=== PATIENT | female | born 1950 | race Two or more races ===

== ENCOUNTER 2016-04-09 12:57 | Emergency (ER) | payer OTHER ==
[~2016-04-09] VITALS: Ht 165.1 cm; Wt 90.7 kg
[2016-04-09] MEDS ORDERED: LEVOFLOXACIN 500 MG TAB PO ONE (14:45)
[2016-04-09 16:32] VITALS: BP 148/76
== END 2016-04-09 16:35 | disposition home or self-care (01) ==
LOC: ER 12:59
DX: S01.402A Unspecified open wound of left cheek and temporomandibular area, initial encounter (principal); L02.31 Cutaneous abscess of buttock; Z48.01 Encounter for change or removal of surgical wound dressing; I10 Essential (primary) hypertension; Z88.0 Allergy status to penicillin; Z91.041 Radiographic dye allergy status; X58.XXXA Exposure to other specified factors, initial encounter; Y93.89 Activity, other specified; Y99.8 Other external cause status; Y92.89 Other specified places as the place of occurrence of the external cause

== ENCOUNTER 2017-05-24 18:22 | Inpatient (IN) | payer OTHER ==
[~2017-05-24] VITALS: Ht 165.1 cm; Wt 85.7 kg
[2017-05-24] MEDS ORDERED: IPRATROPIUM BROM 0.5 MG/2.5ML INH SOL NEB ONE ×2 (19:00→21:15)
[2017-05-24] MEDS ORDERED: ALBUTEROL SULF 2.5 MG/0.5ML(0.5%) NEB SOLN NEB ONE ×2 (19:00→21:15)
[2017-05-24 19:32] LABS: Hemoglobin 12.9 g/dL (12.2-16.2); Lymphocytes # (auto) 1.5 uL; Lymphocytes % (auto) 33.1 % (10.0-50.0); White Blood Cell 4.6 10^3/uL (4.4-10.8)
[2017-05-24 19:42] LABS: Basophils # (auto) 0 uL; Basophils % (auto) 1.1 % (0.0-2.0); Eosinophils # (auto) 0 uL; Eosinophils % (auto) 1.1 % (0.0-7.0); Hematocrit 38.5 % (36.0-46.0); Mean Corpuscular Hemoglobin 32.4 pg (28.0-32.0); Mean Corpuscular Hgb Conc. 33.6 g/dL (32.0-36.0); Mean Corpuscular Volume 96.6 fL (80.0-100.0); Monocytes # (auto) 0.3 uL; Neutrophils # (auto) 2.6 uL; Neutrophils % (auto) 57.7 % (37.0-80.0); Nucleated Red Blood Cells % 0.1 %; Platelet Count (auto) 206 10^3/uL (140-450); Red Blood Cells 3.99 10^6/uL (4.0-5.20); Red Cell Distribution Width 15.4 % (11.8-14.3)
[2017-05-24 19:50] LABS: Alanine Aminotransferase 36 U/L (13-56); Albumin 3.5 g/dL (3.4-5.0); Anion Gap 7 (5-15); Aspartate Aminotransferase 27 U/L (15-37); BUN/Creatinine Ratio 16.5; Blood Urea Nitrogen 17 mg/dL (7-18); Calcium 8.3 mg/dL (8.5-10.1); Carbon Dioxide 28 mmol/L (21-32); Chloride 107 mmol/L (98-107); GFR African American 69 mL/min; GFR Non-African American 57 mL/min; Glucose 128 mg/dL (74-106); Potassium 3.5 mmol/L (3.5-5.1); Sodium 142 mmol/L (136-145)
[2017-05-24 19:55] LABS: Alkaline Phosphatase 73 U/L (45-117); Bilirubin, Total 0.3 mg/dL (0.2-1.0); Total Protein 7.4 g/dL (6.4-8.2)
[2017-05-24] MEDS ORDERED: methylPREDNISolone SOD SUCC 125 MG/2 ML VL IV ONE (21:15)
[2017-05-25] MEDS ORDERED: OSELTAMIVIR 75 MG CAP PO ONE (00:15)
[2017-05-25] MEDS ORDERED: PROMETHAZINE W/CODEINE 5 ML ORAL SYRUP PO ONE (00:15)
[2017-05-25] MEDS ORDERED: DOXYCYCLINE HYC 100MG/250ML 250 ML IV SCH (03:30)
[2017-05-25] MEDS ORDERED: ACETAMINOPHEN 500 MG TAB PO PRN (03:30)
[2017-05-25] MEDS ORDERED: TEMAZEPAM 15 MG CAP PO PRN (03:30)
[2017-05-25] MEDS ORDERED: ONDANSETRON HCL 4 MG/2 ML VIAL IV PRN (03:30)
[2017-05-25] MEDS ORDERED: FUROSEMIDE 20 MG/2 ML VIAL IV ONE (04:45)
[2017-05-25 04:51] LABS: Basophils # (auto) 0 uL; Basophils % (auto) 0.3 % (0.0-2.0); Eosinophils # (auto) 0 uL; Hematocrit 39.4 % (36.0-46.0); Hemoglobin 13.1 g/dL (12.2-16.2); Lymphocytes # (auto) 0.8 uL; Lymphocytes % (auto) 13.6 % (10.0-50.0); Mean Corpuscular Hemoglobin 32.1 pg (28.0-32.0); Mean Corpuscular Hgb Conc. 33.3 g/dL (32.0-36.0); Mean Corpuscular Volume 96.4 fL (80.0-100.0); Monocytes # (auto) 0.1 uL; Monocytes % (auto) 1.3 % (0.0-12.0); Neutrophils # (auto) 4.9 uL; Neutrophils % (auto) 84.8 % (37.0-80.0); Platelet Count (auto) 211 10^3/uL (140-450); Red Blood Cells 4.08 10^6/uL (4.0-5.20); Red Cell Distribution Width 15.4 % (11.8-14.3); White Blood Cell 5.8 10^3/uL (4.4-10.8)
[2017-05-25 05:19] VITALS: BP 148/91
[2017-05-25 05:47] LABS: BUN/Creatinine Ratio 18.7; Calcium 8.9 mg/dL (8.5-10.1)
[2017-05-25] MEDS ORDERED: IPRATROPIUM BROM 0.5 MG/2.5ML INH SOL NEB SCH (06:00)
[2017-05-25] MEDS ORDERED: ALBUTEROL SULF 2.5 MG/0.5ML(0.5%) NEB SOLN NEB SCH (06:00)
[2017-05-25] MEDS: methylPREDNISolone SOD SUCC 40 MG/ML VL IV SCH ×2 (06:41→13:50)
[2017-05-25] MEDS: HYDROcodone-ACET 5/325MG TAB PO PRN ×2 (06:46→12:58)
[2017-05-25 08:00] VITALS: BP 115/81
[2017-05-25] MEDS ORDERED: DILTIAZEM HCL 180MG ER CAP PO SCH (10:00)
[2017-05-25 12:00] VITALS: BP 131/79
[2017-05-25] MEDS ORDERED: GUAI1SOL3 PO ×2 (15:05→15:06)
[2017-05-25] MEDS ORDERED: ALBU0.084 NEB (15:07)
[2017-05-25] MEDS ORDERED: LEVO500T21 PO (15:07)
[2017-05-25] MEDS ORDERED: PRED-559 PO (15:07)
[2017-05-25] MEDS ORDERED: IPR002IS NEB (15:07)
[2017-05-25] MEDS ORDERED: DEXT1SYP6 PO (15:09)
[2017-05-25 16:45] VITALS: BP 144/80
[2017-05-25 17:00] VITALS: BP 144/80
== END 2017-05-25 17:30 | disposition home health service (06) | DRG 191 ==
LOC: ER 18:22 → OVERFLOW 18:23 → CENTRAL 05-25 04:51
PROVIDERS: ADMIT Nurse Practitioner Family; ATTEND Nurse Practitioner Family
DX: J44.1 Chronic obstructive pulmonary disease with (acute) exacerbation (principal); J96.10 Chronic respiratory failure, unspecified whether with hypoxia or hypercapnia; I11.0 Hypertensive heart disease with heart failure; I50.9 Heart failure, unspecified; G62.9 Polyneuropathy, unspecified; E87.6 Hypokalemia; E66.9 Obesity, unspecified; J11.1 Influenza due to unidentified influenza virus with other respiratory manifestations; M54.9 Dorsalgia, unspecified; G89.29 Other chronic pain; M19.90 Unspecified osteoarthritis, unspecified site; Z68.31 Body mass index [BMI] 31.0-31.9, adult; Z87.891 Personal history of nicotine dependence; Z99.81 Dependence on supplemental oxygen; Z88.0 Allergy status to penicillin
CPT/HCPCS: 36415; 36600; 71045; 80048; 80053; 82805; 83880; 84484; 85025; 87804; 93005; 94640; 96365; 96375; J3490

== ENCOUNTER 2017-07-05 16:30 | Emergency (ER) | payer OTHER ==
[~2017-07-05] VITALS: Ht 165.1 cm; Wt 83.9 kg
[~2017-07-05 16:30] MED LIST: ALBU0.084 NEB; DEXT1SYP6 PO; IPR002IS NEB; LEVO500T21 PO; PRED-559 PO
[2017-07-05 22:45] VITALS: BP 128/68
[2017-07-05] MEDS: HYDROcodone-ACET 10/325MG TAB PO ONE (22:50)
== END 2017-07-05 23:37 | disposition home or self-care (01) ==
LOC: EDBD 16:30 → ER 16:30
DX: R51 Headache (principal); M54.2 Cervicalgia; M19.90 Unspecified osteoarthritis, unspecified site; J44.9 Chronic obstructive pulmonary disease, unspecified; I10 Essential (primary) hypertension; Z87.891 Personal history of nicotine dependence; Z91.041 Radiographic dye allergy status; Z88.0 Allergy status to penicillin; Z79.899 Other long term (current) drug therapy; V49.9XXA Car occupant (driver) (passenger) injured in unspecified traffic accident, initial encounter; Y93.89 Activity, other specified; Y92.89 Other specified places as the place of occurrence of the external cause; Y99.8 Other external cause status
CPT/HCPCS: 70450

== ENCOUNTER 2019-02-20 16:00 | Emergency (ER) | payer OTHER ==
[~2019-02-20] VITALS: Ht 165.1 cm; Wt 76.2 kg
[2019-02-20 17:09] LABS: Basophils # (auto) 0 uL; Eosinophils # (auto) 0 uL; Eosinophils % (auto) 0.8 % (0.0-7.0); Hematocrit 41.2 % (36.0-46.0); Hemoglobin 13.8 g/dL (12.2-16.2); Lymphocytes # (auto) 2.3 uL; Lymphocytes % (auto) 44.1 % (10.0-50.0); Mean Corpuscular Hemoglobin 32.8 pg (28.0-32.0); Mean Corpuscular Hgb Conc. 33.4 g/dL (32.0-36.0); Mean Corpuscular Volume 98.3 fL (80.0-100.0); Monocytes # (auto) 0.4 uL; Monocytes % (auto) 7.9 % (0.0-12.0); Neutrophils # (auto) 2.4 uL; Neutrophils % (auto) 46.2 % (37.0-80.0); Nucleated Red Blood Cells % 0.1 %; Platelet Count (auto) 217 10^3/uL (140-450); Red Cell Distribution Width 14.1 % (11.8-14.3); White Blood Cell 5.2 10^3/uL (4.4-10.8)
[2019-02-20 17:26] LABS: Alanine Aminotransferase 34 U/L (13-56); Albumin 3.7 g/dL (3.4-5.0); Anion Gap 6 (5-15); Aspartate Aminotransferase 37 U/L (15-37); BUN/Creatinine Ratio 14.7; Blood Urea Nitrogen 15 mg/dL (7-18); Calcium 8.3 mg/dL (8.5-10.1); Carbon Dioxide 28 mmol/L (21-32); Chloride 108 mmol/L (98-107); GFR African American 69 mL/min; GFR Non-African American 57 mL/min; Glucose 90 mg/dL (74-106); Potassium 4.3 mmol/L (3.5-5.1); Sodium 142 mmol/L (136-145)
[2019-02-20 17:30] LABS: Alkaline Phosphatase 105 U/L (45-117); Bilirubin, Total 0.3 mg/dL (0.2-1.0)
[2019-02-20] MEDS ORDERED: cloNIDine HCL 0.1 MG TAB ONE (18:05)
[2019-02-20] MEDS ORDERED: cloNIDine HCL 0.1 MG TAB PO ONE (18:15)
[2019-02-20] MEDS ORDERED: ALBUTEROL SULF 2.5 MG/0.5ML(0.5%) NEB SOLN NEB ONE (18:15)
[2019-02-20] MEDS ORDERED: IPRATROPIUM BROM 0.5 MG/2.5ML INH SOL NEB ONE (18:15)
[2019-02-20 20:11] VITALS: BP 122/66
== END 2019-02-20 21:13 | disposition home or self-care (01) ==
LOC: ER 16:00
DX: J21.9 Acute bronchiolitis, unspecified (principal); M19.90 Unspecified osteoarthritis, unspecified site
CPT/HCPCS: 36415; 71046; 80053; 84484; 85025; 93005; 94640; 99284; J7611; J7644

== ENCOUNTER 2020-07-03 19:03 | Inpatient (IN) | payer OTHER ==
[~2020-07-03] VITALS: Ht 165.1 cm; Wt 73.5 kg
[~2020-07-03 19:03] MED LIST changes: -LEVO500T21 PO; +LEVO500T31 PO
[2020-07-03] MEDS ORDERED: MORPHINE SULFATE 4 MG/ML SYR/VIAL IV ONE (19:30)
[2020-07-03] MEDS ORDERED: ONDANSETRON HCL 4 MG/2 ML VIAL IV ONE (19:30)
[2020-07-03] MEDS ORDERED: D5W/SOD CHL 0.45% 1,000 ML IV ONE (19:30)
[2020-07-03 20:48] LABS: Nucleated Red Blood Cells % 0.2 %
[2020-07-03 20:49] LABS: Basophils # (auto) 0.1 10 ^3/uL (0-0.2); Eosinophils # (auto) 0 10 ^3/uL (0-0.8); Eosinophils % (auto) 0.5 % (0.0-7.0); Hematocrit 37.8 % (36.0-46.0); Hemoglobin 13.1 g/dL (12.2-16.2); Lymphocytes # (auto) 2.8 10 ^3/uL (0.4-5.4); Lymphocytes % (auto) 30.3 % (10.0-50.0); Mean Corpuscular Hemoglobin 34.2 pg (28.0-32.0); Mean Corpuscular Hgb Conc. 34.6 g/dL (32.0-36.0); Mean Corpuscular Volume 98.6 fL (80.0-100.0); Monocytes # (auto) 0.9 10 ^3/uL (0-1.3); Monocytes % (auto) 9.7 % (0.0-12.0); Neutrophils # (auto) 5.3 10 ^3/uL (1.6-8.6); Neutrophils % (auto) 58.5 % (37.0-80.0); Platelet Count (auto) 209 10^3/uL (140-450); Red Blood Cells 3.83 10^6/uL (4.0-5.20); Red Cell Distribution Width 14.4 % (11.8-14.3); White Blood Cell 9.2 10^3/uL (4.4-10.8)
[2020-07-03 20:55] LABS: INR 1.89 (0.9-1.15)
[2020-07-03 20:57] LABS: Albumin 1.8 g/dL (3.4-5.0); Calcium 8.3 mg/dL (8.5-10.1); Potassium 3.3 mmol/L (3.5-5.1)
[2020-07-03 20:59] LABS: Lactic Acid w/Reflex 2.5 mmol/L (0.4-2.0)
[2020-07-03 21:11] LABS: BUN/Creatinine Ratio 4.9; Bilirubin, Total 6.3 mg/dL (0.2-1.0); Total Protein 7.6 g/dL (6.4-8.2)
[2020-07-03] MEDS ORDERED: IOHEXOL 300 MG/ML 100ML BOTTLE IJ ONE (22:39)
[2020-07-04] MEDS ORDERED: POTASSIUM CHL 20 Meq TABLET PO ONE (03:00)
[2020-07-04] MEDS ORDERED: ONDANSETRON HCL 4 MG/2 ML VIAL IV PRN (03:00)
[2020-07-04] MEDS: cefTRIAXone 1GM/50ML D5W 50 ML IV SCH ×2 (03:46→08:04)
[2020-07-04] MEDS ORDERED: MORPHINE SULF INJ 2 MG/ML SYRINGE 1ML IV PRN (07:45)
[2020-07-04 09:20] VITALS: BP 108/62
[2020-07-04] MEDS ORDERED: DOCUSATE SOD 100 MG CAP PO SCH (10:00)
[2020-07-04] MEDS ORDERED: PANTOPRAZOLE 40 MG/10 ML VIAL INJ IV SCH (10:00)
[2020-07-04] MEDS ORDERED: dilTIAZem HCL 180MG ER CAP PO SCH (10:00)
[2020-07-04] MEDS ORDERED: PHYTONADIONE(VitK) ORAL Susp 10mg/10ml(1mg/ml) PO ONE (10:45)
[2020-07-04 12:20] VITALS: BP 116/79
[2020-07-04 12:34] LABS: INR 1.92 (0.9-1.15)
[2020-07-04 12:50] VITALS: BP 114/66
[2020-07-04 13:00] VITALS: BP 100/58
[2020-07-04] MEDS ORDERED: ASPI81CH74 PO (14:49)
[2020-07-04] MEDS ORDERED: NAPR500T31 PO (14:53)
[2020-07-04] MEDS ORDERED: DILT60TA PO (14:53)
[2020-07-04] MEDS ORDERED: CHOL400C7 PO (14:53)
[2020-07-04] MEDS ORDERED: VITA200T2 PO (14:53)
[2020-07-04] MEDS ORDERED: ASCO500T11 PO (14:53)
[2020-07-04] MEDS ORDERED: FURO1TAB33 PO (15:37)
[2020-07-04 17:00] VITALS: BP 100/60
[2020-07-06 13:36] LABS: Hepatitis A Ab IgM Negative; Hepatitis B Core IgM Negative; Hepatitis B Surface Antigen Negative (Negative); Hepatitis C Antibody Negative (Negative)
== END 2020-07-04 18:43 | disposition home health service (06) | DRG 432 ==
LOC: ER 19:04 → OVERFLOW 19:05 → WEST WING 07-04 08:56
PROVIDERS: ADMIT Nurse Practitioner; ATTEND Internal Medicine
PROC: 0W9G3ZZ Drainage of Peritoneal Cavity, Percutaneous Approach (ICD-10-PCS; principal; 2020-07-04)
DX: K74.60 Unspecified cirrhosis of liver (principal); E43 Unspecified severe protein-calorie malnutrition; D68.9 Coagulation defect, unspecified; I85.00 Esophageal varices without bleeding; R18.8 Other ascites; M19.90 Unspecified osteoarthritis, unspecified site; R94.5 Abnormal results of liver function studies; R74.01 Elevation of levels of liver transaminase levels; J44.9 Chronic obstructive pulmonary disease, unspecified; K42.9 Umbilical hernia without obstruction or gangrene; K59.00 Constipation, unspecified; K76.0 Fatty (change of) liver, not elsewhere classified; Z68.27 Body mass index [BMI] 27.0-27.9, adult; Z82.49 Family history of ischemic heart disease and other diseases of the circulatory system; Z90.49 Acquired absence of other specified parts of digestive tract; Z88.0 Allergy status to penicillin; Z91.041 Radiographic dye allergy status; Z79.899 Other long term (current) drug therapy
CPT/HCPCS: 10022; 36415; 74177; 76705; 76942; 80053; 80074; 82140; 83605; 83690; 83735; 83986; 85025; 85610; 85730; 86677; 87205; 87426; 89051; 93005; 96365; 96367; 96375; 96376; C9113; G0378; J0696; J2405

== ENCOUNTER 2020-07-14 19:48 | Inpatient (IN) | payer OTHER ==
[~2020-07-14] VITALS: Ht 165.1 cm; Wt 76.9 kg
[~2020-07-14 19:48] MED LIST changes: +ASCO500T11 PO; +ASPI81CH74 PO; -DEXT1SYP6 PO; +DILT60TA PO; +FURO1TAB33 PO; -LEVO500T31 PO; -PRED-559 PO
[2020-07-14 21:53] LABS: Basophils # (auto) 0 10 ^3/uL (0-0.2); Eosinophils # (auto) 0 10 ^3/uL (0-0.8); Eosinophils % (auto) 0.4 % (0.0-7.0); Monocytes # (auto) 0.9 10 ^3/uL (0-1.3); Nucleated Red Blood Cells % 0.1 %; Red Cell Distribution Width 14.7 % (11.8-14.3); White Blood Cell 8.2 10^3/uL (4.4-10.8)
[2020-07-14 21:54] LABS: Basophils % (auto) 0.5 % (0.0-2.0); Hematocrit 33.7 % (36.0-46.0); Lymphocytes # (auto) 2.2 10 ^3/uL (0.4-5.4); Lymphocytes % (auto) 26.7 % (10.0-50.0); Mean Corpuscular Hemoglobin 34.6 pg (28.0-32.0); Mean Corpuscular Hgb Conc. 35.5 g/dL (32.0-36.0); Mean Corpuscular Volume 97.4 fL (80.0-100.0); Monocytes % (auto) 11.2 % (0.0-12.0); Neutrophils % (auto) 61.2 % (37.0-80.0); Platelet Count (auto) 232 10^3/uL (140-450); Red Blood Cells 3.46 10^6/uL (4.0-5.20)
[2020-07-14 22:04] LABS: Albumin 1.9 g/dL (3.4-5.0); Calcium 8.2 mg/dL (8.5-10.1)
[2020-07-14 22:07] LABS: BUN/Creatinine Ratio 5.6; Bilirubin, Total 6.1 mg/dL (0.2-1.0); Total Protein 7.3 g/dL (6.4-8.2)
[2020-07-14 22:11] LABS: Potassium 2.8 mmol/L (3.5-5.1)
[2020-07-14 22:26] LABS: INR 1.72 (0.9-1.15); Partial Thromboplastin Time 33.9 sec (23.0-31.2)
[2020-07-15] MEDS ORDERED: ALBUMIN 25% 50 ML IV ONE
[2020-07-15] MEDS ORDERED: MORPHINE SULFATE 4 MG/ML SYR/VIAL IV PRN
[2020-07-15] MEDS ORDERED: DOCUSATE SOD 100 MG CAP PO PRN
[2020-07-15] MEDS ORDERED: MORPHINE SULF INJ 2 MG/ML SYRINGE 1ML IV PRN
[2020-07-15] MEDS ORDERED: NITROGLYCERIN 0.4 MG SL TAB SL PRN
[2020-07-15] MEDS ORDERED: SODIUM CHL 3% 500 ML IV ONE (00:15)
[2020-07-15] MEDS: POTASSIUM CHL 20MEQ/100ML 100 ML IV SCH ×3 (00:24→05:00)
[2020-07-15] MEDS: ONDANSETRON HCL 4 MG/2 ML VIAL IV PRN ×2 (04:01→17:44)
[2020-07-15 05:00] VITALS: BP 109/67
[2020-07-15] MEDS: SODIUM CHLOR 0.9% PF (SALINE LOCK) 10ML VIAL/SYR IV SCH ×3 (05:11→22:15)
[2020-07-15 08:00] VITALS: BP 102/62
[2020-07-15 09:00] VITALS: BP 102/62
[2020-07-15] MEDS: MULTIPLE VITAMIN TAB PO SCH (09:42)
[2020-07-15] MEDS: FAMOTIDINE (10MG/ML) 2ML VL IV SCH ×2 (09:43→22:15)
[2020-07-15 09:47] LABS: Basophils # (auto) 0 10 ^3/uL (0-0.2); Basophils % (auto) 0.4 % (0.0-2.0); Eosinophils # (auto) 0.1 10 ^3/uL (0-0.8); Hematocrit 34.3 % (36.0-46.0); Hemoglobin 11.7 g/dL (12.2-16.2); Lymphocytes # (auto) 2.4 10 ^3/uL (0.4-5.4); Lymphocytes % (auto) 26.9 % (10.0-50.0); Mean Corpuscular Hgb Conc. 34.1 g/dL (32.0-36.0); Mean Corpuscular Volume 99.7 fL (80.0-100.0); Monocytes # (auto) 0.9 10 ^3/uL (0-1.3); Monocytes % (auto) 10.1 % (0.0-12.0); Neutrophils # (auto) 5.4 10 ^3/uL (1.6-8.6); Neutrophils % (auto) 61.6 % (37.0-80.0); Nucleated Red Blood Cells % 0.1 %; Platelet Count (auto) 207 10^3/uL (140-450); Red Blood Cells 3.44 10^6/uL (4.0-5.20); Red Cell Distribution Width 14.6 % (11.8-14.3); White Blood Cell 8.8 10^3/uL (4.4-10.8)
[2020-07-15] MEDS ORDERED: ZINC SULFATE 220mg CAP or TAB PO SCH (10:00)
[2020-07-15] MEDS ORDERED: ASCORBIC ACID 500 MG TAB PO SCH (10:00)
[2020-07-15 10:08] LABS: Albumin 1.9 g/dL (3.4-5.0); Calcium 7.9 mg/dL (8.5-10.1); Potassium 3.3 mmol/L (3.5-5.1)
[2020-07-15 10:12] LABS: BUN/Creatinine Ratio 7.4; Bilirubin, Total 5.9 mg/dL (0.2-1.0); Total Protein 6.9 g/dL (6.4-8.2)
[2020-07-15 12:43] VITALS: BP 126/67
[2020-07-15] MEDS ORDERED: PHYTONADIONE (VIT K)10 MG/ML 1ML VIAL SUBCUT ONE (12:45)
[2020-07-15] MEDS: HYDROcodone-ACET 10/325MG TAB PO PRN (13:28)
[2020-07-15 16:50] VITALS: BP 117/80
[2020-07-15 21:23] VITALS: BP 137/73
[2020-07-16 05:06] VITALS: BP 103/76
[2020-07-16] MEDS: SODIUM CHLOR 0.9% PF (SALINE LOCK) 10ML VIAL/SYR IV SCH ×3 (05:30→21:50)
[2020-07-16 08:54] LABS: Basophils # (auto) 0.1 10 ^3/uL (0-0.2); Basophils % (auto) 0.7 % (0.0-2.0); Eosinophils # (auto) 0.1 10 ^3/uL (0-0.8); Eosinophils % (auto) 1.6 % (0.0-7.0); Hematocrit 35.3 % (36.0-46.0); Hemoglobin 11.9 g/dL (12.2-16.2); Lymphocytes # (auto) 2.3 10 ^3/uL (0.4-5.4); Lymphocytes % (auto) 28.6 % (10.0-50.0); Mean Corpuscular Hemoglobin 33.6 pg (28.0-32.0); Mean Corpuscular Hgb Conc. 33.6 g/dL (32.0-36.0); Mean Corpuscular Volume 100.1 fL (80.0-100.0); Monocytes # (auto) 0.7 10 ^3/uL (0-1.3); Neutrophils # (auto) 4.9 10 ^3/uL (1.6-8.6); Neutrophils % (auto) 60.1 % (37.0-80.0); Nucleated Red Blood Cells % 0.1 %; Platelet Count (auto) 230 10^3/uL (140-450); Red Blood Cells 3.53 10^6/uL (4.0-5.20); Red Cell Distribution Width 15.1 % (11.8-14.3); White Blood Cell 8.1 10^3/uL (4.4-10.8)
[2020-07-16 08:58] VITALS: BP 100/72
[2020-07-16 09:07] LABS: INR 1.7 (0.9-1.15)
[2020-07-16 09:09] LABS: Calcium 8.2 mg/dL (8.5-10.1); Potassium 3.4 mmol/L (3.5-5.1)
[2020-07-16 09:13] LABS: BUN/Creatinine Ratio 8.8; Bilirubin, Total 6.3 mg/dL (0.2-1.0); Total Protein 7.1 g/dL (6.4-8.2)
[2020-07-16] MEDS: FAMOTIDINE (10MG/ML) 2ML VL IV SCH ×2 (09:53→21:48)
[2020-07-16] MEDS: MULTIPLE VITAMIN TAB PO SCH (09:53)
[2020-07-16 13:00] VITALS: BP 122/85
[2020-07-16] MEDS: PHYTONADIONE(VitK) ORAL Susp 10mg/10ml(1mg/ml) PO SCH (15:19)
[2020-07-16 17:00] VITALS: BP 119/77
[2020-07-16] MEDS: HYDROcodone-ACET 10/325MG TAB PO PRN (20:35)
[2020-07-16 22:00] VITALS: BP 107/81
[2020-07-17 05:00] VITALS: BP 98/62
[2020-07-17] MEDS: SODIUM CHLOR 0.9% PF (SALINE LOCK) 10ML VIAL/SYR IV SCH ×3 (06:00→21:16)
[2020-07-17 08:43] VITALS: BP 102/67
[2020-07-17] MEDS: MULTIPLE VITAMIN TAB PO SCH (11:41)
[2020-07-17] MEDS: FAMOTIDINE (10MG/ML) 2ML VL IV SCH ×2 (11:41→21:16)
[2020-07-17] MEDS: PHYTONADIONE(VitK) ORAL Susp 10mg/10ml(1mg/ml) PO SCH (11:42)
[2020-07-17] MEDS: ALBUMIN 25% 100 ML IV SCH ×2 (11:43→17:05)
[2020-07-17 13:05] VITALS: BP 134/57
[2020-07-17] MEDS ORDERED: SPIR25TA PO (16:16)
[2020-07-17 16:42] VITALS: BP 99/61
[2020-07-17 22:00] VITALS: BP 95/54
[2020-07-18] MEDS: ALBUMIN 25% 100 ML IV SCH (03:01)
[2020-07-18 05:00] VITALS: BP 94/59
[2020-07-18] MEDS: SODIUM CHLOR 0.9% PF (SALINE LOCK) 10ML VIAL/SYR IV SCH ×2 (06:00→13:53)
[2020-07-18 09:00] VITALS: BP 93/60
[2020-07-18] MEDS: MULTIPLE VITAMIN TAB PO SCH (10:54)
[2020-07-18] MEDS: PHYTONADIONE(VitK) ORAL Susp 10mg/10ml(1mg/ml) PO SCH (10:54)
[2020-07-18] MEDS: FAMOTIDINE (10MG/ML) 2ML VL IV SCH (10:54)
[2020-07-18] MEDS: HYDROcodone-ACET 10/325MG TAB PO PRN (12:49)
[2020-07-18 13:00] VITALS: BP 102/65
[2020-07-18] MEDS ORDERED: levETIRAcetam 500 MG/5ML INJ IV ONE (16:43)
== END 2020-07-18 15:16 | disposition hospice, home (50) | DRG 433 ==
LOC: ER 19:48 → TELE 07-15 00:10 → TELE-WESTW 07-15 03:22
PROVIDERS: ADMIT Nurse Practitioner Family; ATTEND Hospitalist
PROC: 0W9G30Z Drainage of Peritoneal Cavity with Drainage Device, Percutaneous Approach (ICD-10-PCS; principal; 2020-07-17)
DX: K70.31 Alcoholic cirrhosis of liver with ascites (principal); D68.9 Coagulation defect, unspecified; L03.116 Cellulitis of left lower limb; I85.10 Secondary esophageal varices without bleeding; E87.1 Hypo-osmolality and hyponatremia; E44.1 Mild protein-calorie malnutrition; Z20.822 Contact with and (suspected) exposure to COVID-19; E88.09 Other disorders of plasma-protein metabolism, not elsewhere classified; Z51.5 Encounter for palliative care; E87.6 Hypokalemia; I10 Essential (primary) hypertension; J44.9 Chronic obstructive pulmonary disease, unspecified; K72.90 Hepatic failure, unspecified without coma; K46.9 Unspecified abdominal hernia without obstruction or gangrene; Z82.49 Family history of ischemic heart disease and other diseases of the circulatory system; M19.90 Unspecified osteoarthritis, unspecified site; F10.10 Alcohol abuse, uncomplicated; Y90.9 Presence of alcohol in blood, level not specified; Z88.0 Allergy status to penicillin; Z91.041 Radiographic dye allergy status
CPT/HCPCS: 36415; 71045; 74176; 76700; 76942; 80053; 83036; 83690; 83735; 85025; 85610; 85730; 87081; 87426; 96365; G0378; J2405; J3430; J3480; J3490; P9047

== ENCOUNTER 2020-07-31 13:23 | Inpatient (IN) | payer OTHER ==
[~2020-07-31] VITALS: Ht 166.4 cm; Wt 71.0 kg
[~2020-07-31 13:23] MED LIST changes: -ASCO500T11 PO; -ASPI81CH74 PO; -FURO1TAB33 PO; +SPIR25TA PO
[2020-07-31 14:37] LABS: Basophils # (auto) 0.1 10 ^3/uL (0-0.2); Basophils % (auto) 1.3 % (0.0-2.0); Eosinophils # (auto) 0 10 ^3/uL (0-0.8); Eosinophils % (auto) 0.6 % (0.0-7.0); Hematocrit 33.8 % (36.0-46.0); Hemoglobin 11.5 g/dL (12.2-16.2); Lymphocytes # (auto) 2.2 10 ^3/uL (0.4-5.4); Lymphocytes % (auto) 34.2 % (10.0-50.0); Mean Corpuscular Hemoglobin 33.4 pg (28.0-32.0); Mean Corpuscular Hgb Conc. 34.1 g/dL (32.0-36.0); Mean Corpuscular Volume 97.8 fL (80.0-100.0); Monocytes # (auto) 0.7 10 ^3/uL (0-1.3); Monocytes % (auto) 11.3 % (0.0-12.0); Neutrophils # (auto) 3.3 10 ^3/uL (1.6-8.6); Neutrophils % (auto) 52.6 % (37.0-80.0); Nucleated Red Blood Cells % 0.1 %; Red Blood Cells 3.45 10^6/uL (4.0-5.20); Red Cell Distribution Width 15.1 % (11.8-14.3); White Blood Cell 6.3 10^3/uL (4.4-10.8)
[2020-07-31 14:51] LABS: Calcium 8.7 mg/dL (8.5-10.1); Potassium 3.2 mmol/L (3.5-5.1)
[2020-07-31 14:54] LABS: INR 1.63 (0.9-1.15); Partial Thromboplastin Time 32.7 sec (23.0-31.2)
[2020-07-31 14:55] LABS: Albumin 2.4 g/dL (3.4-5.0); BUN/Creatinine Ratio 6.1
[2020-07-31 14:57] LABS: Bilirubin, Total 5.8 mg/dL (0.2-1.0); Total Protein 7.5 g/dL (6.4-8.2)
[2020-07-31 16:42] LABS: Urine Bacteria FEW /hpf (None Seen); Urine Blood Negative /uL (Negative); Urine Hyaline Cast MOD /lpf (0 - 2); Urine Mucus FEW (None Seen); Urine WBC 6 /hpf (0 - 5)
[2020-07-31] MEDS ORDERED: MORPHINE SULFATE INJECTION 2 MG/ML SYRG IV PRN (17:30)
[2020-07-31] MEDS ORDERED: NITROGLYCERIN 0.4 MG SL TAB SL PRN (17:30)
[2020-07-31] MEDS ORDERED: POTASSIUM CHL 20MEQ/100ML 100 ML IV ONE (19:30)
[2020-07-31] MEDS ORDERED: ALBUMIN 25% 100 ML IV ONE (19:30)
[2020-07-31 20:40] VITALS: BP 117/69
[2020-07-31 20:45] VITALS: BP 117/69
[2020-07-31 22:00] VITALS: BP 117/69
[2020-08-01] MEDS: ALBUMIN 25% 50 ML IV SCH ×2 (03:30→13:08)
[2020-08-01] MEDS ORDERED: DOCUSATE SOD 100 MG CAP PO PRN (04:00)
[2020-08-01] MEDS ORDERED: LACTULOSE 20Gm/30ML SOLN PO PRN (04:00)
[2020-08-01] MEDS ORDERED: CIPROFLOXACIN 400MG/200ML 200 ML IV ONE (04:00)
[2020-08-01] MEDS ORDERED: HYDROcodone-ACET 5/325MG TAB PO PRN (04:00)
[2020-08-01] MEDS ORDERED: MORPHINE SULFATE INJECTION 2 MG/ML SYRG IV PRN ×2 (04:00)
[2020-08-01] MEDS ORDERED: NITROGLYCERIN 0.4 MG SL TAB SL PRN (04:00)
[2020-08-01] MEDS ORDERED: PANTOPRAZOLE 40 MG/10 ML VIAL INJ IV ONE (04:00)
[2020-08-01 05:00] VITALS: BP 102/60
[2020-08-01] MEDS: MIDODRINE HCL 10 MG TAB PO SCH ×3 (06:00→18:10)
[2020-08-01 07:12] LABS: Basophils # (auto) 0 10 ^3/uL (0-0.2); Basophils % (auto) 0.5 % (0.0-2.0); Eosinophils # (auto) 0.1 10 ^3/uL (0-0.8); Eosinophils % (auto) 1.3 % (0.0-7.0); Hematocrit 30.5 % (36.0-46.0); Hemoglobin 10.4 g/dL (12.2-16.2); Lymphocytes # (auto) 2.7 10 ^3/uL (0.4-5.4); Lymphocytes % (auto) 37.3 % (10.0-50.0); Mean Corpuscular Hemoglobin 33.4 pg (28.0-32.0); Mean Corpuscular Hgb Conc. 34.2 g/dL (32.0-36.0); Mean Corpuscular Volume 97.6 fL (80.0-100.0); Monocytes # (auto) 0.9 10 ^3/uL (0-1.3); Monocytes % (auto) 12.1 % (0.0-12.0); Neutrophils # (auto) 3.5 10 ^3/uL (1.6-8.6); Neutrophils % (auto) 48.8 % (37.0-80.0); Nucleated Red Blood Cells % 0.2 %; Red Blood Cells 3.12 10^6/uL (4.0-5.20); Red Cell Distribution Width 15.3 % (11.8-14.3); White Blood Cell 7.2 10^3/uL (4.4-10.8)
[2020-08-01 07:17] LABS: INR 1.75 (0.9-1.15); Partial Thromboplastin Time 35.3 sec (23.0-31.2)
[2020-08-01 07:38] LABS: Potassium 3.1 mmol/L (3.5-5.1)
[2020-08-01 07:44] LABS: Albumin 2.8 g/dL (3.4-5.0); BUN/Creatinine Ratio 6.5; Bilirubin, Total 6.5 mg/dL (0.2-1.0); Calcium 8.3 mg/dL (8.5-10.1); Magnesium 2.1 mg/dL (1.6-2.6); Phosphorus 3.6 mg/dL (2.5-4.90)
[2020-08-01 08:30] VITALS: BP 109/60
[2020-08-01] MEDS ORDERED: SPIR100T4 PO (08:43)
[2020-08-01] MEDS ORDERED: DILT-102 PO (08:43)
[2020-08-01] MEDS ORDERED: FURO1TAB31 PO (08:43)
[2020-08-01] MEDS: FUROSEMIDE 20 MG TAB PO SCH (10:00)
[2020-08-01] MEDS: PROPRANOLOL HCL 20 MG TAB PO SCH ×2 (10:00→21:59)
[2020-08-01] MEDS: SPIRONOLACTONE 25 MG TAB PO SCH (10:00)
[2020-08-01] MEDS: POTASSIUM CHL 20 Meq TABLET PO SCH (11:26)
[2020-08-01 13:13] VITALS: BP 98/51
[2020-08-01 16:43] VITALS: BP 90/55
[2020-08-01] MEDS: CIPROFLOXACIN 400MG/200ML 200 ML IV SCH (20:55)
[2020-08-01 21:41] VITALS: BP 91/51
[2020-08-02 04:47] VITALS: BP 94/60
[2020-08-02] MEDS: MIDODRINE HCL 10 MG TAB PO SCH ×3 (05:41→18:47)
[2020-08-02 05:53] LABS: Basophils # (auto) 0.1 10 ^3/uL (0-0.2); Eosinophils # (auto) 0.1 10 ^3/uL (0-0.8); Eosinophils % (auto) 1.3 % (0.0-7.0); Hematocrit 29.3 % (36.0-46.0); Hemoglobin 10.3 g/dL (12.2-16.2); Lymphocytes # (auto) 2.5 10 ^3/uL (0.4-5.4); Lymphocytes % (auto) 40.2 % (10.0-50.0); Mean Corpuscular Hemoglobin 34.2 pg (28.0-32.0); Mean Corpuscular Hgb Conc. 35.1 g/dL (32.0-36.0); Mean Corpuscular Volume 97.4 fL (80.0-100.0); Monocytes # (auto) 0.7 10 ^3/uL (0-1.3); Monocytes % (auto) 11.5 % (0.0-12.0); Neutrophils # (auto) 2.9 10 ^3/uL (1.6-8.6); Nucleated Red Blood Cells % 0.3 %; Red Blood Cells 3.01 10^6/uL (4.0-5.20); Red Cell Distribution Width 15.2 % (11.8-14.3); White Blood Cell 6.3 10^3/uL (4.4-10.8)
[2020-08-02 06:14] LABS: BUN/Creatinine Ratio 6.3; Potassium 3.8 mmol/L (3.5-5.1)
[2020-08-02 08:44] LABS: Urine Bacteria NONE SEEN /hpf (None Seen); Urine Blood Negative /uL (Negative); Urine Specific Gravity 1.012 (1.001-1.035); Urine WBC <1 /hpf (0 - 5)
[2020-08-02 09:00] VITALS: BP 111/68
[2020-08-02 09:01] LABS: Alcohol, Urine < 3.0 mg/dL (0-10); Amphetamine Screen, Urine NEGATIVE (NEGATIVE); Barbiturate Scree,Urine NEGATIVE (NEGATIVE); Benzodiazephine Screen, Urine NEGATIVE (NEGATIVE); Cannabinoid Screen, Urine NEGATIVE (NEGATIVE); Cocaine Screen, Urine NEGATIVE (NEGATIVE); Opiate Scree,Urine NEGATIVE (NEGATIVE); Phencyclidine Screen, Urine NEGATIVE (NEGATIVE)
[2020-08-02] MEDS: POTASSIUM CHL 20 Meq TABLET PO SCH (09:45)
[2020-08-02] MEDS: PANTOPRAZOLE 40 MG/10 ML VIAL INJ IV SCH (09:46)
[2020-08-02] MEDS: FOLIC ACID 1 MG TAB PO SCH (09:47)
[2020-08-02] MEDS: THIAMINE HCL 100 MG TAB PO SCH (09:47)
[2020-08-02] MEDS: CIPROFLOXACIN 400MG/200ML 200 ML IV SCH ×2 (09:48→21:38)
[2020-08-02] MEDS: SPIRONOLACTONE 25 MG TAB PO SCH ×2 (09:53→13:09)
[2020-08-02] MEDS: PROPRANOLOL HCL 20 MG TAB PO SCH ×2 (09:54→21:32)
[2020-08-02] MEDS: FUROSEMIDE 20 MG TAB PO SCH ×2 (09:54→13:10)
[2020-08-02] MEDS ORDERED: SENNA 8.6 MG TAB PO PRN (12:00)
[2020-08-02] MEDS: LACTULOSE 20Gm/30ML SOLN PO SCH ×5 (12:00→23:31)
[2020-08-02 13:00] VITALS: BP 103/66
[2020-08-02] MEDS: PHYTONADIONE(VitK) ORAL Susp 10mg/10ml(1mg/ml) PO SCH (13:10)
[2020-08-02] MEDS: DOCUSATE SOD 100 MG CAP PO SCH ×2 (13:10→21:38)
[2020-08-02 17:00] VITALS: BP 109/68
[2020-08-02] MEDS ORDERED: ZOLPIDEM TARTRATE 5 MG TAB PO ONE (21:15)
[2020-08-02 21:44] VITALS: BP 92/62
[2020-08-03 05:00] VITALS: BP 120/61
[2020-08-03] MEDS: LACTULOSE 20Gm/30ML SOLN PO SCH ×5 (05:22→22:00)
[2020-08-03] MEDS: MIDODRINE HCL 10 MG TAB PO SCH ×3 (05:44→18:07)
[2020-08-03 06:47] LABS: Basophils # (auto) 0.1 10 ^3/uL (0-0.2); Basophils % (auto) 1.3 % (0.0-2.0); Eosinophils # (auto) 0.1 10 ^3/uL (0-0.8); Eosinophils % (auto) 2.1 % (0.0-7.0); Hematocrit 30.9 % (36.0-46.0); Hemoglobin 10.5 g/dL (12.2-16.2); Lymphocytes # (auto) 2.1 10 ^3/uL (0.4-5.4); Lymphocytes % (auto) 37.2 % (10.0-50.0); Mean Corpuscular Hemoglobin 33.6 pg (28.0-32.0); Mean Corpuscular Volume 98.7 fL (80.0-100.0); Monocytes # (auto) 0.7 10 ^3/uL (0-1.3); Monocytes % (auto) 12.2 % (0.0-12.0); Neutrophils # (auto) 2.6 10 ^3/uL (1.6-8.6); Neutrophils % (auto) 47.2 % (37.0-80.0); Nucleated Red Blood Cells % 0.6 %; Red Blood Cells 3.13 10^6/uL (4.0-5.20); Red Cell Distribution Width 15.4 % (11.8-14.3); White Blood Cell 5.6 10^3/uL (4.4-10.8)
[2020-08-03 06:59] LABS: INR 1.72 (0.9-1.15)
[2020-08-03 07:02] LABS: Calcium 8.2 mg/dL (8.5-10.1); Potassium 3.9 mmol/L (3.5-5.1)
[2020-08-03 07:06] LABS: BUN/Creatinine Ratio 4.8
[2020-08-03] MEDS: PANTOPRAZOLE 40 MG/10 ML VIAL INJ IV SCH (08:31)
[2020-08-03] MEDS: THIAMINE HCL 100 MG TAB PO SCH (08:32)
[2020-08-03] MEDS: POTASSIUM CHL 20 Meq TABLET PO SCH (08:33)
[2020-08-03] MEDS: DOCUSATE SOD 100 MG CAP PO SCH (08:34)
[2020-08-03] MEDS: SPIRONOLACTONE 25 MG TAB PO SCH (08:37)
[2020-08-03] MEDS: FUROSEMIDE 20 MG TAB PO SCH (08:37)
[2020-08-03] MEDS: PROPRANOLOL HCL 20 MG TAB PO SCH ×2 (08:37→21:42)
[2020-08-03 09:00] VITALS: BP 108/71
[2020-08-03] MEDS: CIPROFLOXACIN 400MG/200ML 200 ML IV SCH ×2 (09:16→22:00)
[2020-08-03] MEDS: ONDANSETRON HCL 4 MG/2 ML VIAL IV PRN (09:56)
[2020-08-03] MEDS: PHYTONADIONE(VitK) ORAL Susp 10mg/10ml(1mg/ml) PO SCH (10:00)
[2020-08-03] MEDS: FOLIC ACID 1 MG TAB PO SCH (10:00)
[2020-08-03 12:49] VITALS: BP 95/59
[2020-08-03 17:00] VITALS: BP 91/57
[2020-08-03 20:10] VITALS: BP 104/62
[2020-08-03 22:00] VITALS: BP 107/60
[2020-08-04] MEDS: DOCUSATE SOD 100 MG CAP PO SCH ×2 (00:54→09:35)
[2020-08-04 05:00] VITALS: BP 118/74
[2020-08-04] MEDS: LACTULOSE 20Gm/30ML SOLN PO SCH ×5 (05:26→18:00)
[2020-08-04] MEDS: MIDODRINE HCL 10 MG TAB PO SCH ×3 (05:26→18:00)
[2020-08-04 08:34] VITALS: BP 107/67
[2020-08-04 08:57] LABS: INR 1.76 (0.9-1.15); Partial Thromboplastin Time 34.8 sec (23.0-31.2)
[2020-08-04] MEDS: PANTOPRAZOLE 40 MG/10 ML VIAL INJ IV SCH (09:34)
[2020-08-04] MEDS: FOLIC ACID 1 MG TAB PO SCH (09:34)
[2020-08-04] MEDS: CIPROFLOXACIN 400MG/200ML 200 ML IV SCH (09:34)
[2020-08-04] MEDS: THIAMINE HCL 100 MG TAB PO SCH (09:34)
[2020-08-04] MEDS: POTASSIUM CHL 20 Meq TABLET PO SCH (09:35)
[2020-08-04] MEDS: FUROSEMIDE 20 MG TAB PO SCH (09:35)
[2020-08-04] MEDS: SPIRONOLACTONE 25 MG TAB PO SCH (09:35)
[2020-08-04] MEDS: PROPRANOLOL HCL 20 MG TAB PO SCH (09:35)
[2020-08-04] MEDS: PHYTONADIONE(VitK) ORAL Susp 10mg/10ml(1mg/ml) PO SCH (09:36)
[2020-08-04] MEDS ORDERED: ONDANSETRON HCL 4 MG/2 ML VIAL ONE (11:42)
[2020-08-04] MEDS: ONDANSETRON HCL 4 MG/2 ML VIAL IV PRN (12:13)
[2020-08-04 12:46] VITALS: BP 114/66
[2020-08-04] MEDS ORDERED: FUROSEMIDE 20 MG TAB PO SCH (13:00)
[2020-08-04] MEDS ORDERED: SPIRONOLACTONE 25 MG TAB PO SCH (13:00)
[2020-08-04 16:49] VITALS: BP 106/48
[2020-08-04 19:45] LABS: Basophils # (auto) 0.1 10 ^3/uL (0-0.2); Basophils % (auto) 0.9 % (0.0-2.0); Eosinophils # (auto) 0.1 10 ^3/uL (0-0.8); Eosinophils % (auto) 1.5 % (0.0-7.0); Hematocrit 30.3 % (36.0-46.0); Hemoglobin 10.3 g/dL (12.2-16.2); Lymphocytes # (auto) 2.3 10 ^3/uL (0.4-5.4); Lymphocytes % (auto) 39.2 % (10.0-50.0); Mean Corpuscular Hemoglobin 33.3 pg (28.0-32.0); Monocytes # (auto) 0.6 10 ^3/uL (0-1.3); Monocytes % (auto) 10.4 % (0.0-12.0); Neutrophils # (auto) 2.8 10 ^3/uL (1.6-8.6); Nucleated Red Blood Cells % 0.4 %; Red Blood Cells 3.09 10^6/uL (4.0-5.20); Red Cell Distribution Width 15.6 % (11.8-14.3); White Blood Cell 5.9 10^3/uL (4.4-10.8)
[2020-08-04 20:00] VITALS: BP 107/58
[2020-08-04 20:02] LABS: Calcium 8.6 mg/dL (8.5-10.1); Magnesium 1.8 mg/dL (1.6-2.6); Potassium 4.2 mmol/L (3.5-5.1)
== END 2020-08-04 22:26 | disposition home health service (06) | DRG 433 ==
LOC: ER 13:23 → TELE 17:28 → TELE-WESTW 20:45
PROVIDERS: ADMIT Hospitalist; ATTEND Internal Medicine
PROC: 0W9G30Z Drainage of Peritoneal Cavity with Drainage Device, Percutaneous Approach (ICD-10-PCS; principal; 2020-08-01)
PROC: 0W9G30Z Drainage of Peritoneal Cavity with Drainage Device, Percutaneous Approach (ICD-10-PCS; 2020-08-03)
DX: K70.31 Alcoholic cirrhosis of liver with ascites (principal); N39.0 Urinary tract infection, site not specified; I85.10 Secondary esophageal varices without bleeding; K76.6 Portal hypertension; D68.4 Acquired coagulation factor deficiency; N17.9 Acute kidney failure, unspecified; D64.9 Anemia, unspecified; K70.11 Alcoholic hepatitis with ascites; N18.31 Chronic kidney disease, stage 3a; E87.6 Hypokalemia; E03.9 Hypothyroidism, unspecified; I12.9 Hypertensive chronic kidney disease with stage 1 through stage 4 chronic kidney disease, or unspecified chronic kidney disease; J44.9 Chronic obstructive pulmonary disease, unspecified; Z82.49 Family history of ischemic heart disease and other diseases of the circulatory system; Z83.3 Family history of diabetes mellitus; Z90.49 Acquired absence of other specified parts of digestive tract; F10.20 Alcohol dependence, uncomplicated; M19.90 Unspecified osteoarthritis, unspecified site; Y90.9 Presence of alcohol in blood, level not specified; E88.09 Other disorders of plasma-protein metabolism, not elsewhere classified; Z20.822 Contact with and (suspected) exposure to COVID-19; Z88.0 Allergy status to penicillin; Z91.041 Radiographic dye allergy status; S00.12XA Contusion of left eyelid and periocular area, initial encounter; W18.30XA Fall on same level, unspecified, initial encounter; Y93.89 Activity, other specified; Y92.89 Other specified places as the place of occurrence of the external cause
CPT/HCPCS: 36415; 70486; 74176; 76604; 76700; 76942; 80048; 80053; 80061; 80307; 81001; 82140; 83615; 83735; 83880; 83986; 84100; 84439; 84443; 84484; 85025; 85610; 85730; 87040; 87086; 87205; 87426; 89051; 93005; 96365; C9113; G0378; J2405; P9047

== ENCOUNTER 2020-08-20 15:51 | Inpatient (IN) | payer OTHER ==
[~2020-08-20] VITALS: Ht 165.1 cm; Wt 63.9 kg
[~2020-08-20 15:51] MED LIST changes: +FURO1TAB31 PO; +SPIR100T4 PO
[2020-08-20 16:35] LABS: Basophils # (auto) 0.1 10 ^3/uL (0-0.2); Basophils % (auto) 0.9 % (0.0-2.0); Eosinophils # (auto) 0.1 10 ^3/uL (0-0.8); Eosinophils % (auto) 0.9 % (0.0-7.0); Hematocrit 32.5 % (36.0-46.0); Hemoglobin 11.5 g/dL (12.2-16.2); Lymphocytes # (auto) 2.3 10 ^3/uL (0.4-5.4); Lymphocytes % (auto) 28.8 % (10.0-50.0); Mean Corpuscular Hemoglobin 33.9 pg (28.0-32.0); Mean Corpuscular Hgb Conc. 35.4 g/dL (32.0-36.0); Mean Corpuscular Volume 95.9 fL (80.0-100.0); Monocytes # (auto) 0.8 10 ^3/uL (0-1.3); Monocytes % (auto) 9.8 % (0.0-12.0); Neutrophils # (auto) 4.8 10 ^3/uL (1.6-8.6); Neutrophils % (auto) 59.6 % (37.0-80.0); Nucleated Red Blood Cells % 0.3 %; Platelet Count (auto) 271 10^3/uL (140-450); Red Blood Cells 3.39 10^6/uL (4.0-5.20); Red Cell Distribution Width 15.5 % (11.8-14.3); White Blood Cell 8.1 10^3/uL (4.4-10.8)
[2020-08-20 16:50] LABS: Albumin 2.5 g/dL (3.4-5.0); BUN/Creatinine Ratio 5.4; Calcium 8.7 mg/dL (8.5-10.1); Potassium 3.3 mmol/L (3.5-5.1)
[2020-08-20 16:58] LABS: Bilirubin, Total 4.8 mg/dL (0.2-1.0); Total Protein 7.6 g/dL (6.4-8.2)
[2020-08-20 17:08] LABS: INR 1.47 (0.9-1.15); Partial Thromboplastin Time 29.8 sec (23.0-31.2)
[2020-08-20] MEDS ORDERED: ONDANSETRON HCL 4 MG/2 ML VIAL IV PRN (20:45)
[2020-08-20] MEDS ORDERED: ALBUTEROL SULF 2.5 MG/0.5ML(0.5%) NEB SOLN NEB PRN (20:45)
[2020-08-20 22:16] VITALS: BP 100/76
[2020-08-20] MEDS: MIDODRINE HCL 10 MG TAB PO SCH (22:25)
[2020-08-20 23:10] VITALS: BP 139/91
[2020-08-20 23:42] VITALS: BP 139/91
[2020-08-21 05:17] VITALS: BP 109/69
[2020-08-21] MEDS ORDERED: NAPR375T27 PO (06:14)
[2020-08-21] MEDS ORDERED: LACT10SO70 PO (06:18)
[2020-08-21 07:38] LABS: Calcium 8.6 mg/dL (8.5-10.1); Potassium 3.5 mmol/L (3.5-5.1)
[2020-08-21 07:41] LABS: Albumin 2.3 g/dL (3.4-5.0); BUN/Creatinine Ratio 6.3
[2020-08-21 07:44] LABS: Bilirubin, Total 4.1 mg/dL (0.2-1.0); Total Protein 6.9 g/dL (6.4-8.2)
[2020-08-21 08:30] VITALS: BP 105/61
[2020-08-21] MEDS ORDERED: dilTIAZem HCL 180MG ER CAP PO SCH (10:00)
[2020-08-21] MEDS ORDERED: FUROSEMIDE 40 MG TAB PO SCH (10:00)
[2020-08-21] MEDS ORDERED: LACTULOSE 20Gm/30ML SOLN PO SCH (10:00)
[2020-08-21] MEDS ORDERED: SPIRONOLACTONE 25 MG TAB PO SCH (10:00)
[2020-08-21] MEDS ORDERED: FAMOTIDINE 20 MG TAB PO SCH (10:00)
[2020-08-21] MEDS: MIDODRINE HCL 10 MG TAB PO SCH (10:33)
[2020-08-21 12:30] VITALS: BP 91/55
[2020-08-21] MEDS ORDERED: SPIR25TA PO (13:46)
[2020-08-21] MEDS ORDERED: DILT60TA PO (13:46)
[2020-08-21 16:50] VITALS: BP 94/59
[2020-08-21 17:02] VITALS: BP 94/59
== END 2020-08-21 18:15 | disposition home health service (06) | DRG 432 ==
LOC: ER 15:51 → OVERFLOW 20:40 → EAST 23:09
PROVIDERS: ADMIT Nurse Practitioner; ATTEND Internal Medicine
PROC: 0W9G3ZZ Drainage of Peritoneal Cavity, Percutaneous Approach (ICD-10-PCS; principal; 2020-08-21)
DX: K70.31 Alcoholic cirrhosis of liver with ascites (principal); E43 Unspecified severe protein-calorie malnutrition; Z20.822 Contact with and (suspected) exposure to COVID-19; I10 Essential (primary) hypertension; M19.90 Unspecified osteoarthritis, unspecified site; Z88.5 Allergy status to narcotic agent; Z88.0 Allergy status to penicillin; Z79.899 Other long term (current) drug therapy; Z83.3 Family history of diabetes mellitus; Z82.49 Family history of ischemic heart disease and other diseases of the circulatory system; Z90.49 Acquired absence of other specified parts of digestive tract; Z87.891 Personal history of nicotine dependence; Z91.041 Radiographic dye allergy status; Z79.52 Long term (current) use of systemic steroids; Z68.23 Body mass index [BMI] 23.0-23.9, adult; J44.9 Chronic obstructive pulmonary disease, unspecified
CPT/HCPCS: 36415; 76700; 76942; 80053; 85025; 85610; 85730; 87081; 87205; 87426; 89051; 93005; G0378

== ENCOUNTER 2020-08-29 18:34 | Inpatient (IN) | payer OTHER ==
[~2020-08-29] VITALS: Ht 165.1 cm; Wt 65.4 kg
[~2020-08-29 18:34] MED LIST changes: +LACT10SO70 PO; -SPIR100T4 PO
[2020-08-29] MEDS ORDERED: ONDANSETRON HCL 4 MG/2 ML VIAL IV ONE (19:15)
[2020-08-29] MEDS ORDERED: MORPHINE SULFATE 4 MG/ML SYR/VIAL IV ONE (19:15)
[2020-08-29 20:00] LABS: Basophils # (auto) 0.1 10 ^3/uL (0-0.2); Basophils % (auto) 0.9 % (0.0-2.0); Eosinophils # (auto) 0.1 10 ^3/uL (0-0.8); Eosinophils % (auto) 0.9 % (0.0-7.0); Hematocrit 32.2 % (36.0-46.0); Hemoglobin 11.2 g/dL (12.2-16.2); Lymphocytes # (auto) 2.2 10 ^3/uL (0.4-5.4); Lymphocytes % (auto) 28.2 % (10.0-50.0); Mean Corpuscular Hemoglobin 33.2 pg (28.0-32.0); Mean Corpuscular Hgb Conc. 34.8 g/dL (32.0-36.0); Mean Corpuscular Volume 95.3 fL (80.0-100.0); Monocytes # (auto) 0.7 10 ^3/uL (0-1.3); Monocytes % (auto) 9.7 % (0.0-12.0); Neutrophils # (auto) 4.6 10 ^3/uL (1.6-8.6); Neutrophils % (auto) 60.3 % (37.0-80.0); Nucleated Red Blood Cells % 0.2 %; Red Blood Cells 3.37 10^6/uL (4.0-5.20); Red Cell Distribution Width 15.5 % (11.8-14.3); White Blood Cell 7.7 10^3/uL (4.4-10.8)
[2020-08-29 20:14] LABS: Albumin 2.5 g/dL (3.4-5.0); BUN/Creatinine Ratio 8.6; Calcium 8.9 mg/dL (8.5-10.1); Potassium 4.4 mmol/L (3.5-5.1)
[2020-08-29] MEDS ORDERED: ONDANSETRON HCL 4 MG/2 ML VIAL ONE (20:14)
[2020-08-29] MEDS ORDERED: MORPHINE SULFATE 4 MG/ML SYR/VIAL ONE (20:14)
[2020-08-29 20:17] LABS: Bilirubin, Total 3.8 mg/dL (0.2-1.0); Total Protein 7.7 g/dL (6.4-8.2)
[2020-08-29 20:33] LABS: INR 1.31 (0.9-1.15); Partial Thromboplastin Time 27.5 sec (23.0-31.2)
[2020-08-29] MEDS ORDERED: MORPHINE SULFATE INJECTION 2 MG/ML SYRG IV PRN (22:00)
[2020-08-29] MEDS ORDERED: TEMAZEPAM 15 MG CAP PO PRN (22:00)
[2020-08-29] MEDS ORDERED: ONDANSETRON HCL 4 MG/2 ML VIAL IV PRN (22:00)
[2020-08-29] MEDS ORDERED: PROMETHAZINE HCL 25 MG/ML 1ML IV ONE (22:15)
[2020-08-29] MEDS: FAMOTIDINE 20 MG TAB PO SCH (22:28)
[2020-08-30 00:57] VITALS: BP 105/59
[2020-08-30 05:00] VITALS: BP_SYST 152; BP_SYST 99; BP_DIAS 66; BP_DIAS 86
[2020-08-30 06:02] LABS: Basophils # (auto) 0 10 ^3/uL (0-0.2); Basophils % (auto) 0.5 % (0.0-2.0); Eosinophils # (auto) 0 10 ^3/uL (0-0.8); Eosinophils % (auto) 0.2 % (0.0-7.0); Hematocrit 30.8 % (36.0-46.0); Lymphocytes # (auto) 1.9 10 ^3/uL (0.4-5.4); Lymphocytes % (auto) 26.1 % (10.0-50.0); Mean Corpuscular Hemoglobin 33.9 pg (28.0-32.0); Mean Corpuscular Hgb Conc. 35.6 g/dL (32.0-36.0); Mean Corpuscular Volume 95.4 fL (80.0-100.0); Monocytes # (auto) 0.5 10 ^3/uL (0-1.3); Monocytes % (auto) 7.1 % (0.0-12.0); Neutrophils # (auto) 4.8 10 ^3/uL (1.6-8.6); Neutrophils % (auto) 66.1 % (37.0-80.0); Nucleated Red Blood Cells % 0.1 %; Red Blood Cells 3.23 10^6/uL (4.0-5.20); Red Cell Distribution Width 15.1 % (11.8-14.3); White Blood Cell 7.3 10^3/uL (4.4-10.8)
[2020-08-30] MEDS ORDERED: SPIR50TA2 PO (06:33)
[2020-08-30 07:50] LABS: Albumin 2.3 g/dL (3.4-5.0); Potassium 4.9 mmol/L (3.5-5.1)
[2020-08-30 07:53] LABS: BUN/Creatinine Ratio 10.3; Bilirubin, Total 3.8 mg/dL (0.2-1.0); Total Protein 7.2 g/dL (6.4-8.2)
[2020-08-30 08:44] VITALS: BP 97/57
[2020-08-30] MEDS: dilTIAZem HCL 180MG ER CAP PO SCH (10:00)
[2020-08-30] MEDS ORDERED: dilTIAZem HCL 180MG ER CAP PO SCH (10:00)
[2020-08-30] MEDS ORDERED: SPIRONOLACTONE 25 MG TAB PO SCH ×2 (10:00→18:00)
[2020-08-30] MEDS ORDERED: LACTULOSE 20Gm/30ML SOLN PO SCH (10:00)
[2020-08-30] MEDS: ALBUMIN 25% 100 ML IV SCH ×2 (10:58→19:00)
[2020-08-30] MEDS: LACTULOSE 20Gm/30ML SOLN PO SCH ×2 (10:59→21:03)
[2020-08-30] MEDS: FAMOTIDINE 20 MG TAB PO SCH (10:59)
[2020-08-30] MEDS: FUROSEMIDE 40 MG TAB PO SCH (11:01)
[2020-08-30 13:00] VITALS: BP_SYST 159; BP_SYST 94; BP_DIAS 67; BP_DIAS 69
[2020-08-30 16:46] VITALS: BP 106/54
[2020-08-30 22:00] VITALS: BP 109/65
[2020-08-31] MEDS: ALBUMIN 25% 100 ML IV SCH (01:20)
[2020-08-31 05:00] VITALS: BP 86/59
[2020-08-31 05:58] VITALS: BP 95/59
[2020-08-31 06:27] LABS: Basophils # (auto) 0.1 10 ^3/uL (0-0.2); Basophils % (auto) 1.1 % (0.0-2.0); Eosinophils # (auto) 0.1 10 ^3/uL (0-0.8); Eosinophils % (auto) 1.6 % (0.0-7.0); Hematocrit 27.3 % (36.0-46.0); Hemoglobin 9.6 g/dL (12.2-16.2); Lymphocytes # (auto) 2.1 10 ^3/uL (0.4-5.4); Lymphocytes % (auto) 32.6 % (10.0-50.0); Mean Corpuscular Hemoglobin 33.7 pg (28.0-32.0); Mean Corpuscular Hgb Conc. 35.3 g/dL (32.0-36.0); Mean Corpuscular Volume 95.4 fL (80.0-100.0); Monocytes # (auto) 0.7 10 ^3/uL (0-1.3); Monocytes % (auto) 10.5 % (0.0-12.0); Neutrophils # (auto) 3.4 10 ^3/uL (1.6-8.6); Neutrophils % (auto) 54.2 % (37.0-80.0); Nucleated Red Blood Cells % 0.2 %; Red Blood Cells 2.86 10^6/uL (4.0-5.20); Red Cell Distribution Width 15.3 % (11.8-14.3); White Blood Cell 6.4 10^3/uL (4.4-10.8)
[2020-08-31 06:46] LABS: Calcium 8.6 mg/dL (8.5-10.1); Potassium 3.8 mmol/L (3.5-5.1)
[2020-08-31 06:50] LABS: BUN/Creatinine Ratio 10.3; Bilirubin, Total 3.6 mg/dL (0.2-1.0); Total Protein 6.4 g/dL (6.4-8.2)
[2020-08-31 08:38] VITALS: BP 103/56
[2020-08-31 09:44] LABS: INR 1.51 (0.9-1.15); Partial Thromboplastin Time 30.2 sec (23.0-31.2)
[2020-08-31] MEDS: dilTIAZem HCL 180MG ER CAP PO SCH (10:00)
[2020-08-31 11:35] VITALS: BP 103/56
[2020-08-31] MEDS: FUROSEMIDE 40 MG TAB PO SCH (12:47)
[2020-08-31] MEDS: FAMOTIDINE 20 MG TAB PO SCH (12:47)
[2020-08-31] MEDS: LACTULOSE 20Gm/30ML SOLN PO SCH (12:47)
[2020-08-31 13:00] VITALS: BP 92/52
== END 2020-08-31 14:30 | disposition home or self-care (01) | DRG 433 ==
LOC: ER 18:34 → OVERFLOW 21:46 → WEST WING 23:35
PROVIDERS: ADMIT Nurse Practitioner; ATTEND Hospitalist
PROC: 0W9G3ZZ Drainage of Peritoneal Cavity, Percutaneous Approach (ICD-10-PCS; principal; 2020-08-31)
DX: K70.31 Alcoholic cirrhosis of liver with ascites (principal); D68.4 Acquired coagulation factor deficiency; K76.6 Portal hypertension; I10 Essential (primary) hypertension; K42.9 Umbilical hernia without obstruction or gangrene; Z88.3 Allergy status to other anti-infective agents; Z88.0 Allergy status to penicillin; Z68.23 Body mass index [BMI] 23.0-23.9, adult; D64.9 Anemia, unspecified; I70.0 Atherosclerosis of aorta; I83.90 Asymptomatic varicose veins of unspecified lower extremity; J44.9 Chronic obstructive pulmonary disease, unspecified; Z82.49 Family history of ischemic heart disease and other diseases of the circulatory system; Z83.3 Family history of diabetes mellitus; Z20.822 Contact with and (suspected) exposure to COVID-19
CPT/HCPCS: 36415; 49083; 74176; 76700; 76942; 80053; 82140; 82150; 83690; 85025; 85610; 85730; 87081; 87426; 93005; 96374; 96375; G0378; J2405; P9047

== ENCOUNTER 2021-02-27 13:25 | Inpatient (IN) | payer OTHER ==
[~2021-02-27] VITALS: Ht 165.1 cm; Wt 58.0 kg
[~2021-02-27 13:25] MED LIST changes: -FURO1TAB31 PO
[2021-02-27 15:06] LABS: Hematocrit 44.1 % (36.0-46.0); Hemoglobin 14.9 g/dL (12.2-16.2); Mean Corpuscular Hemoglobin 32.2 pg (28.0-32.0); Mean Corpuscular Hgb Conc. 33.9 g/dL (32.0-36.0); Mean Corpuscular Volume 95.2 fL (80.0-100.0); Red Blood Cells 4.64 10^6/uL (4.0-5.20); Red Cell Distribution Width 15.1 % (11.8-14.3); White Blood Cell 2.5 10^3/uL (4.4-10.8)
[2021-02-27 15:17] LABS: Band Neutrophils % (manual) 0; Basophils % (manual) 0 (0.0-2.0); Blast Cells 0; Eosinophils % (manual) 0 (0-7); Metamyelocytes % 0; Myelocytes % 0; Promyelocytes % 0; Reactive Lymphocytes 0
[2021-02-27 15:21] LABS: Albumin 2.8 g/dL (3.4-5.0); Calcium 8.4 mg/dL (8.5-10.1)
[2021-02-27 15:24] LABS: BUN/Creatinine Ratio 11.8; Bilirubin, Total 1.8 mg/dL (0.2-1.0); Total Protein 8.4 g/dL (6.4-8.2)
[2021-02-27 16:06] LABS: Potassium 2.6 mmol/L (3.5-5.1)
[2021-02-27 16:16] LABS: Lymphocytes % (manual) 59 (10.0-50.0); Monocytes % (manual) 17 (0-12)
[2021-02-27] MEDS ORDERED: HYDROcodone-ACET 5/325MG TAB PO PRN (16:45)
[2021-02-27] MEDS ORDERED: guaiFENesin-DM 100/10mg/5ml SYR PO PRN (16:45)
[2021-02-27] MEDS ORDERED: ACETAMINOPHEN 325 MG TAB PO PRN (16:45)
[2021-02-27] MEDS ORDERED: ONDANSETRON HCL 4 MG/2 ML VIAL IV ONE (17:00)
[2021-02-27] MEDS ORDERED: POTASSIUM CHL 20MEQ/100ML 100 ML IV ONE (17:00)
[2021-02-27] MEDS ORDERED: MORPHINE SULFATE 4 MG/ML SYR/VIAL IV ONE (17:00)
[2021-02-27] MEDS ORDERED: SODIUM CHLORIDE 0.9% 1,000 ML IV ONE ×2 (17:00)
[2021-02-27] MEDS ORDERED: POTASSIUM EFFERVESENT TAB 25 MEQ PO ONE (17:00)
[2021-02-27] MEDS ORDERED: ONDANSETRON HCL 4 MG/2 ML VIAL ONE (19:50)
[2021-02-27] MEDS: ONDANSETRON HCL 4 MG/2 ML VIAL IV PRN (19:55)
[2021-02-27] MEDS ORDERED: ALBUTEROL SULF HFA 90MCG INH 200DOSE IN PRN (22:00)
[2021-02-27] MEDS ORDERED: ALBUTEROL SULF HFA 90MCG INH 200DOSE IN SCH (22:00)
[2021-02-27 23:30] VITALS: BP 118/69
[2021-02-28] MEDS ORDERED: FURO1TAB31 PO (02:23)
[2021-02-28] MEDS ORDERED: SPIR50TA5 PO (02:23)
[2021-02-28] MEDS ORDERED: SUCR1TAB PO (02:23)
[2021-02-28] MEDS ORDERED: OMEP20TA PO (02:23)
[2021-02-28 02:53] LABS: Calcium 8.5 mg/dL (8.5-10.1); Potassium 3.3 mmol/L (3.5-5.1)
[2021-02-28 02:57] LABS: BUN/Creatinine Ratio 13.4
[2021-02-28 03:34] VITALS: BP 118/69
[2021-02-28 05:00] VITALS: BP 112/66
[2021-02-28 07:33] LABS: Hematocrit 40.1 % (36.0-46.0); Hemoglobin 13.6 g/dL (12.2-16.2); Mean Corpuscular Hemoglobin 32.6 pg (28.0-32.0); Mean Corpuscular Volume 95.8 fL (80.0-100.0); Red Blood Cells 4.19 10^6/uL (4.0-5.20); White Blood Cell 3.2 10^3/uL (4.4-10.8)
[2021-02-28 07:47] LABS: BUN/Creatinine Ratio 14.4; CRP High Sensitivity 0.41 mg/dL (< 0.3); Calcium 8.3 mg/dL (8.5-10.1); Potassium 3.2 mmol/L (3.5-5.1)
[2021-02-28 07:54] LABS: Band Neutrophils % (manual) 0; Basophils % (manual) 0 (0.0-2.0); Blast Cells 0; Eosinophils % (manual) 0 (0-7); Metamyelocytes % 0; Myelocytes % 0; Promyelocytes % 0; Reactive Lymphocytes 0
[2021-02-28 08:00] VITALS: BP 98/58
[2021-02-28] MEDS ORDERED: POTASSIUM CHL 20 Meq TABLET PO ONE (09:30)
[2021-02-28] MEDS ORDERED: POTASSIUM CHL 20MEQ/100ML 100 ML IV ONE (09:30)
[2021-02-28] MEDS ORDERED: SODIUM CHLORIDE 0.9% 1,000 ML IV ONE (09:30)
[2021-02-28 09:43] LABS: Lymphocytes % (manual) 38 (10.0-50.0); Monocytes % (manual) 8 (0-12)
[2021-02-28] MEDS ORDERED: dilTIAZem HCL 180MG ER CAP PO SCH (10:00)
[2021-02-28 12:00] VITALS: BP 104/72
[2021-02-28 19:43] VITALS: BP 98/58
[2021-02-28 22:00] VITALS: BP 87/46
[2021-02-28] MEDS ORDERED: SODIUM CHLORIDE 0.9% 500 ML IV ONE (22:00)
[2021-03-01 05:00] VITALS: BP 98/49
[2021-03-01 07:37] LABS: Hematocrit 37.2 % (36.0-46.0); Hemoglobin 12.6 g/dL (12.2-16.2); Mean Corpuscular Hemoglobin 32.4 pg (28.0-32.0); Mean Corpuscular Hgb Conc. 33.8 g/dL (32.0-36.0); Mean Corpuscular Volume 95.8 fL (80.0-100.0); Red Blood Cells 3.89 10^6/uL (4.0-5.20); Red Cell Distribution Width 15.3 % (11.8-14.3)
[2021-03-01 07:53] LABS: Basophils % (manual) 0 (0.0-2.0); Eosinophils % (manual) 0 (0-7); Metamyelocytes % 0; Myelocytes % 0; Promyelocytes % 0; Reactive Lymphocytes 0
[2021-03-01 07:58] LABS: BUN/Creatinine Ratio 13.4; CRP High Sensitivity 0.68 mg/dL (< 0.3); Calcium 7.8 mg/dL (8.5-10.1)
[2021-03-01 09:00] VITALS: BP 113/69
[2021-03-01 10:15] LABS: Band Neutrophils % (manual) 2; Lymphocytes % (manual) 37 (10.0-50.0)
[2021-03-01 10:16] LABS: Blast Cells 2; Monocytes % (manual) 19 (0-12)
== END 2021-03-01 10:05 | disposition home health service (06) | DRG 177 ==
LOC: EDBD 13:25 → ER 13:25 → TELE 16:36 → TELE-EAST 23:14
PROVIDERS: ADMIT Internal Medicine; ATTEND Internal Medicine
DX: U07.1 COVID-19 (principal); N17.0 Acute kidney failure with tubular necrosis; I24.9 Acute ischemic heart disease, unspecified; E87.6 Hypokalemia; I10 Essential (primary) hypertension; J44.9 Chronic obstructive pulmonary disease, unspecified; M19.90 Unspecified osteoarthritis, unspecified site; R53.81 Other malaise; M79.10 Myalgia, unspecified site; Z88.0 Allergy status to penicillin; Z88.6 Allergy status to analgesic agent; Z91.041 Radiographic dye allergy status; Z83.3 Family history of diabetes mellitus; Z90.49 Acquired absence of other specified parts of digestive tract
CPT/HCPCS: 36415; 71045; 76775; 80048; 80053; 82550; 82728; 82962; 84484; 85007; 85027; 85379; 86141; 87426; 93005; 93306; 93970; 94640; 96361; 96374; 96375; 99291; G0378; J2405; J3480